=== PATIENT | female | born 1985 | race Caucasian/White ===

== ENCOUNTER 2019-05-22 08:17 | Inpatient (IN) | payer OTHER ==
[2019-05-22 09:51] LABS: Basophils % (Auto) 0.3 % (0.0-1.8); Eosinophils # (Auto) 0.1 K/mm3 (0.0-0.4); Eosinophils % (Auto) 0.8 % (0.0-4.3); Hematocrit 34.3 % (30.3-42.9); Hemoglobin 11.5 gm/dl (10.1-14.3); Lymphocytes # (Auto) 1.8 K/mm3 (1.2-5.4); Lymphocytes % (Auto) 15.8 % (13.4-35.0); Mean Corpuscular HGB Conc 34 % (30-34); Mean Corpuscular Volume 93 fl (79-97); Monocytes # (Auto) 0.8 K/mm3 (0.0-0.8); Monocytes % (Auto) 7.1 % (0.0-7.3); Platelet Count 365 K/mm3 (140-440); Red Blood Count 3.68 M/mm3 (3.65-5.03); Red Cell Distribution Width 14.1 % (13.2-15.2)
[2019-05-22] MEDS ORDERED: AMPICILLIN 1 GM in NACL 0.9% 50 ML IV SCH (10:00)
[2019-05-22] MEDS ORDERED: LACTATED RINGERS 1,000 ML IV ONE (10:30)
[2019-05-22] MEDS ORDERED: BRETHINE IVP PRN (10:48)
[2019-05-22] MEDS ORDERED: SUBLIMAZE IV PRN (10:48)
[2019-05-22] MEDS ORDERED: BRETHINE SUB-Q PRN (10:48)
[2019-05-22] MEDS ORDERED: AMPICILLIN/NS 2 GM/100 ML 2 GM/100 ML BAG IV ONE (11:00)
[2019-05-22] MEDS ORDERED: PITOCin/NS 30 UNIT/500ML 30 UNITS/500 ML BAG IV ONE (11:00)
[2019-05-22] MEDS ORDERED: LACTATED RINGERS 1,000 ML IV SCH (11:00)
[2019-05-22] MEDS ORDERED: PITOCin/NS 30 UNIT/500ML 30 UNITS/500 ML BAG IV SCH (11:00)
[2019-05-22] MEDS ORDERED: PITOCin/NS 20 UNIT/1000ML DRIP 20 UNITS/1,000 ML BAG IV SCH (11:00)
[2019-05-22] MEDS ORDERED: XYLOCAINE 2% INFILTRATI ONE (11:48)
--- NOTE | 2019-05-22 13:09 | History and Physical Report ---
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 Pt initiated care with [facility] at 7w 1d. Records available, reviewed and scanned into chart. course uneventful. Pt anemic taking ferrous sulfate. 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 denies: smoking, alcohol abuse, prescription drug abuse, IV drug use - Obstetrical History Expected Date of Delivery: 06/09/19 Actual Gestation: 37 Week(s) 3 Day(s) : 2 Para: 0 Hx # Term Pregnancies: 0 Number of Pregnancies: 0 Spontaneous Abortions: 0 Induced : 1 Number of Living Children: 0 Medications and Allergies Allergies Allergy/AdvReac Type Severity Reaction Status Date / Time No Known Allergies Allergy Verified 05/22/19 10:28 Home Medications Medication Instructions Recorded Confirmed Last Taken Type No Known Home Medications [No 05/22/19 05/22/19 Unknown History Reported Home Medications] Active Meds: Active Medications Ephedrine Sulfate (Ephedrine Sulfate) 10 mg IV Q2M PRN PRN Reason: Hypotension Fentanyl (Sublimaze) 100 mcg IV Q2H PRN PRN Reason: Labor Pain Last Admin: 05/22/19 11:31 Dose: 100 mcg Documented by: Oxytocin/Sodium Chloride (Pitocin/Ns 30 Unit/500ml) 30 units in 500 mls @ 1 mls/hr IV DIRECT ONE; Protocol Stop: 06/12/19 06:59 Last Admin: 05/22/19 10:31 Dose: 4 milliunits/min, 4 mls/hr Documented by: Ampicillin Sodium (Ampicillin/Ns 1 Gm/50 Ml) 1 gm in 50 mls @ 100 mls/hr IV Q4H [facility] Lactated Ringer's (Lactated Ringers) 1,000 mls @ 125 mls/hr IV DIRECT [facility] Oxytocin/Sodium Chloride (Pitocin/Ns 20 Unit/1000ml Drip) 20 units in 1,000 mls @ 125 mls/hr IV DIRECT [facility] Oxytocin/Sodium Chloride (Pitocin/Ns 30 Unit/500ml) 30 units in 500 mls @ 4 mls/hr IV TITR [facility]; Protocol Terbutaline Sulfate (Brethine) 0.25 mg SUB-Q ONCE PRN PRN Reason: Hyperstimulation/Hypertonicity Terbutaline Sulfate (Brethine) 0.25 mg IVP ONCE PRN PRN Reason: Hyperstimulation/Hypertonicity Review of Systems Eyes: normal appearance Cardiovascular: no chest pain, no shortness of breath Respiratory: no shortness of breath Breasts: normal Gastrointestinal: no nausea, no vomiting, no diarrhea, no constipation Genitourinary: normal appearance, leakage of fluid (clear fluid), contractions, no vaginal bleeding, no genital sores Integumentary: no rash, no sores, no lesions - Vital Signs Vital signs: Vital Signs Pulse BP 98 H 131/94 05/22/19 09:05 05/22/19 09:05 Temp Pulse Resp BP Pulse Ox 98.3 F 111 H 127/84 05/22/19 10:10 05/22/19 12:55 05/22/19 12:55 - Physical Exam Breasts: Positive: normal Cardiovascular: Regular rate, Normal S1, Normal S2, No murmurs Lungs: Positive: Clear to auscultation, Normal air movement Abdomen: Positive: normal appearance, soft, normal bowel sounds. Negative: distention Genitourinary (Female): Positive: normal external genitalia, normal perenium Vulva: both: normal Vagina: Positive: normal moisture (clear fluid noted with exam) Anus/Rectum: Positive: normal perianal skin Extremities: Positive: normal Deep Tendon Reflex Grade: Normal +2 - Obstetrical FHR: category 1 Uterine Contraction Monitor Mode: External Cervical Dilatation: 4 (Clear fluid noted with exam) station: -2 Uterine Contraction Pattern: Irregular Uterine Tone Measurement Phase: Resting Uterine Contraction Intensity: Moderate Results Result Diagrams: 05/22/19 08:58 Abnormal lab results 05/22/19 Range/Units 08:58 WBC 11.3 H (4.5-11.0) K/mm3 Seg Neutrophils % 76.0 H (40.0-70.0) % Seg Neutrophils # 8.6 H (1.8-7.7) K/mm3 All other labs normal. Assessment and Plan A: Term IUP at 37w2d SROM 05/22/19 @0400; clear fluid Category 1 tracing GBS positive P: Admit to L&D Routine labor orders May have IV pain med/epidural PRN Pitocin Augmentation Anticipate
[2019-05-22] MEDS ORDERED: DULCOLAX PR PRN (13:52)
[2019-05-22] MEDS ORDERED: TUCKS PAD TP PRN (13:52)
[2019-05-22] MEDS ORDERED: LANSINOH TP PRN (13:52)
[2019-05-22] MEDS ORDERED: TYLENOL PO PRN (13:52)
[2019-05-22] MEDS ORDERED: NORCO 5/325 PO PRN (13:52)
[2019-05-22] MEDS ORDERED: PHENERGAN PO PRN (13:52)
[2019-05-22] MEDS ORDERED: MILK OF MAGNESIA PO PRN (13:52)
[2019-05-22] MEDS ORDERED: ZOFRAN IV PRN (13:52)
[2019-05-22] MEDS ORDERED: BENADRYL PO PRN (13:52)
[2019-05-22] MEDS ORDERED: SODIUM CHLORIDE FLUSH SYRINGE 10 ML IV SCH (14:00)
--- NOTE | 2019-05-22 14:00 | Procedure Note ---
OB Delivery Note - Delivery Date of Delivery: 05/22/19 (13:35) Surgeon: MARISA ST (PUMA) Estimated blood loss: 200cc - Vaginal Delivery presentation: vertex Delivery position: OA Intrapartum events: none Delivery induction: oxytocin Delivery monitor: external FHT, external uterine Route of delivery: (13:35) Delivery placenta: spontaneous (13:39) Delivery cord: nuchal cord (loose x1), 3 umbilical vessels Delivery laceration: none Anesthesia: none Delivery comments: viable male , CANDACE position, loose nuchal delivered intact via somersault maneuver over intact perineum at 13:35. Vigorous placed [id number] on mothers abdomen. Delayed cord clamping, then cut by pt's sister with my guidance. Spontaneous mirza delivery of intact placenta at 13:39. 3VC. FF@U-1. Small lochia. Small left periurethral laceration left unrepaired, well approximated, good hemostasis. EBL 200ml. and mother left in stable condition in L&D. - A at 1 minute: 8 at 5 minutes: 9 Infant Gender: Male (3050 grams, 6lbs 12oz, 19")
[2019-05-22] MEDS ORDERED: AMPICILLIN/NS 1 GM/50 ML 1 GM/50 ML BAG IV SCH (15:00)
[2019-05-22] MEDS: IBUPROFEN PO SCH ×2 (16:30→23:02)
[2019-05-23] MEDS: IBUPROFEN PO SCH ×2 (05:39→23:36)
[2019-05-23 05:41] LABS: Hematocrit 33.9 % (30.3-42.9); Hemoglobin 11.3 gm/dl (10.1-14.3)
--- NOTE | 2019-05-23 10:12 | Progress Note ---
Assessment and Plan - Patient Problems (1) (normal spontaneous vaginal delivery) Current Visit: Yes Status: Acute Plan to address problem: Continue routine PP orders Anticipate d/c home tomorrow Subjective - Subjective Date of service: 05/23/19 Principal diagnosis: Interval history: See admission H & P and OB delivery summary Patient reports: appetite normal, voiding normally, pain well controlled, flatus, ambulating normally, no bowel movement [place]: doing well, bottle feeding (and ) Objective - Vital Signs Latest vital signs: Vital Signs Temp Pulse Resp BP Pulse Ox 05/22/19 23:15 98.5 F 97 H 20 133/79 100 05/22/19 20:15 98.5 F 86 20 142/83 99 05/22/19 16:00 109 H 99 05/22/19 15:50 98.7 F 16 134/86 05/22/19 15:28 98.2 F 05/22/19 15:19 100 H 125/82 05/22/19 13:55 96 H 136/76 05/22/19 12:55 111 H 127/84 05/22/19 11:57 88 131/80 Intake and Output 05/22/19 05/23/19 05/23/19 23:59 07:59 15:59 Intake Total 560 120 Output Total 1000 Balance -440 120 Intake: Oral 560 120 Output: Urine 1000 Void 1000 Other: Total, Intake Amount 240 120 Total, Output Amount 600 # Voids Void 2 - Exam Breasts: Present: normal Cardiovascular: Present: Regular rate Lungs: Present: Normal air movement Abdomen: Present: soft, normal bowel sounds Uterus: Present: firm, fundal height below umbilicus (U-1) Extremities: Present: normal Deep Tendon Reflex Grade: Normal +2
--- NOTE | 2019-05-23 10:15 | Discharge Summary ---
Providers - Providers Date of Admission: 05/22/19 08:18 Date of discharge: 05/24/19 (1200) Attending physician: LAKSHMI VEGA MD Primary care physician: LAKSHMI VEGA MD Hospitalization Reason for admission: active labor, IUP at term Delivery: Episiotomy: none Laceration: none Other procedures: none complications: none Discharge diagnosis: IUP at term delivered [place] baby: male Hospital course: See admission H & P, OB delivery summary and PP progress notes Condition at discharge: Good Disposition: DC-01 TO HOME OR SELFCARE - Discharge Diagnoses (1) (normal spontaneous vaginal delivery) Status: Acute Plan - Provider Discharge Summary Activity: routine, no sex for 6 weeks, no heavy lifting 4 weeks, no strenuous exercise Diet: routine Instructions: routine Additional instructions: [] Smoking cessation referral if applicable(refer to patient education folder for contact #) [] Refer to [facility] Booklet Call your doctor immediately for: * Fever > 100.5 * Heavy vaginal bleeding ( >1 pad per hour) * Severe persistent headache * Shortness of breath * Reddened, hot, painful area to leg or breast * Drainage or odor from incision. - Follow up plan Follow up: LAKSHMI VEGA MD [Primary Care Provider] - 7 Days
[2019-05-24] MEDS: IBUPROFEN PO SCH ×2 (05:38→23:29)
[2019-05-24 19:09] LABS: Hematocrit 30.1 % (30.3-42.9); Hemoglobin 9.8 gm/dl (10.1-14.3); Mean Corpuscular HGB Conc 33 % (30-34); Mean Corpuscular Volume 95 fl (79-97); Platelet Count 335 K/mm3 (140-440); Red Blood Count 3.17 M/mm3 (3.65-5.03); Red Cell Distribution Width 14.2 % (13.2-15.2)
[2019-05-24 19:33] LABS: Alanine Aminotransferase 25 units/L (7-56); Albumin 3.4 g/dL (3.9-5); BUN/Creatinine Ratio 12; Blood Urea Nitrogen 6 mg/dL (7-17); Calcium 8.8 mg/dL (8.4-10.2); Hemolysis Index 14
[2019-05-24 20:22] LABS: Uric Acid 3.3 mg/dL (3.5-7.6)
--- NOTE | 2019-05-24 20:34 | Progress Note ---
Assessment and Plan A: day 2 S/P . Elevated blood pressure. P: Preeclamptic labs. PO Labetalol. BP monitoring. Discussed plan of care and warning signs with patient. Subjective - Subjective Date of service: 05/24/19 Principal diagnosis: day 2 S/P Interval history: day 2 S/P . Several elevated blood pressures. Patient denies headache, visual disturbance, chest pain, shortnes of breath, abdominal pain, leg pain, or heavy bleeding. Patient reports: appetite normal, voiding normally, pain well controlled, flatus, ambulating normally, no dizzy ambulation, no nauseated [place]: doing well Objective - Vital Signs Latest vital signs: Vital Signs Temp Pulse Resp BP BP Pulse Ox 05/24/19 18:45 150/100 05/24/19 16:28 97.7 F 18 122/103 05/24/19 07:47 97.3 F L 18 137/87 05/24/19 00:51 97.8 F 77 18 128/74 99 Intake and Output 05/24/19 05/24/19 05/24/19 07:59 15:59 23:59 Intake Total 480 Balance 480 Intake: Oral 480 Other: Total, Intake Amount 480 # Voids Void 2 - Exam Abdomen: Present: normal appearance, soft. Absent: distention, tenderness, guarding, rigidity Uterus: Present: normal, firm, fundal height below umbilicus. Absent: bogginess, tenderness Extremities: Present: normal. Absent: tenderness, edema Deep Tendon Reflex Grade: Normal +2 - Labs Labs: Abnormal lab results 05/24/19 05/24/19 Range/Units 18:55 18:55 WBC 12.3 H (4.5-11.0) K/mm3 RBC 3.17 L (3.65-5.03) M/mm3 Hgb 9.8 L (10.1-14.3) gm/dl Hct 30.1 L (30.3-42.9) % Chloride 107.2 H (98-107) mmol/L Carbon Dioxide 20 L (22-30) mmol/L BUN 6 L (7-17) mg/dL Creatinine 0.5 L (0.7-1.2) mg/dL Uric Acid 3.3 L (3.5-7.6) mg/dL Lactate Dehydrogenase 189 H (91-180) units/L Albumin 3.4 L (3.9-5) g/dL
[2019-05-24] MEDS ORDERED: FEOSOL PO SCH (22:00)
[2019-05-24] MEDS: NORMODYNE PO SCH (23:29)
[2019-05-25] MEDS: IBUPROFEN PO SCH (07:51)
[2019-05-25] MEDS: NORMODYNE PO SCH (15:27)
[2019-05-25 16:41] VITALS: BP 138/88
--- NOTE | 2019-05-25 19:36 | Progress Note ---
Assessment and Plan A: day 3 S/P spontaneous vaginal delivery. Anemia secondary to and blood loss. Elevated blood pressure, on oral Labetalol. P: Continue iron supplementation. Continue oral Labetalol. Per Dr. Herron, keep patient overnight to observe BPs. Discussed this plan with patient. Subjective - Subjective Date of service: 05/25/19 Principal diagnosis: day 3 S/P Interval history: day 3 S/P . Denies headache, visual disturbance, nausea/vomiting, abdominal pain, or epigastric pain. Voiding without difficulty, ambulating well. Tolerating a regular diet without nausea or vomiting. Small amount of lochia. Patient reports: appetite normal, voiding normally, pain well controlled, flatus, ambulating normally, no dizzy ambulation, no nauseated [place]: doing well Objective - Vital Signs Latest vital signs: Vital Signs Temp Pulse Resp BP BP Pulse Ox 05/25/19 16:05 97.9 F 78 20 138/88 05/25/19 15:27 91 H 149/99 05/25/19 08:50 98.3 F 88 20 143/74 05/25/19 04:38 97.8 F 87 18 133/79 98 05/25/19 01:28 97.8 F 98 H 18 116/73 97 05/24/19 23:29 94 H 142/94 05/24/19 23:12 97.7 F 93 H 20 142/94 99 Intake and Output 05/25/19 05/25/19 05/25/19 07:59 15:59 23:59 Intake Total 120 240 320 Balance 120 240 320 Intake: Oral 120 240 320 Other: Total, Intake Amount 120 240 320 # Voids Void 1 - Exam Cardiovascular: Present: Regular rate, Normal S1, Normal S2 Lungs: Present: Clear to auscultation Abdomen: Present: normal appearance, soft. Absent: distention, tenderness, guarding, rigidity Uterus: Present: normal, firm, fundal height below umbilicus. Absent: bogginess, tenderness Extremities: Present: normal. Absent: tenderness, edema - Labs Labs: Abnormal lab results 05/24/19 Range/Units 18:55 Chloride 107.2 H (98-107) mmol/L Carbon Dioxide 20 L (22-30) mmol/L BUN 6 L (7-17) mg/dL Creatinine 0.5 L (0.7-1.2) mg/dL Uric Acid 3.3 L (3.5-7.6) mg/dL Lactate Dehydrogenase 189 H (91-180) units/L Albumin 3.4 L (3.9-5) g/dL
--- NOTE | 2019-05-25 23:26 | Event Note ---
Date: 05/25/19 Received news that patient had signed out AMA. Will let know.
== END 2019-05-25 20:50 | disposition left against medical advice (07) | DRG 807 ==
LOC: TRG 08:17 → LD 08:18 → TRG 08:20 → LD 08:25 → OB 16:41
PROVIDERS: ADMIT Obstetrics & Gynecology; ATTEND Obstetrics & Gynecology
PROC: 10E0XZZ Delivery of Products of Conception, External Approach (ICD-10-PCS; principal; 2019-05-22)
PROC: 3E033VJ Introduction of Other Hormone into Peripheral Vein, Percutaneous Approach (ICD-10-PCS; 2019-05-22)
DX: O99.824 Streptococcus B carrier state complicating childbirth (principal); Z37.0 Single live birth; O69.81X0 Labor and delivery complicated by cord around neck, without compression, not applicable or unspecified; Z3A.37 37 weeks gestation of pregnancy; O71.82 Other specified trauma to perineum and vulva
CPT/HCPCS: 36415; 80053; 83615; 84550; 85014; 85018; 85025; 85027; 86592; 86850; 86900; 86901; G0378; J0290; J2590; J3010; J7120